=== PATIENT | female | born 1935 | race Caucasian/White ===

== ENCOUNTER 2018-04-27 14:26 | Emergency (ER) | payer MEDICARE, BC ==
[2018-04-27 16:46] LABS: ANION GAP 24.1
[2018-04-27] MEDS ORDERED: Lactated Ringers 1,000 ML IV ONE (16:58)
[2018-04-27] MEDS ORDERED: HYDROmorphone 0.5 MG/0.5 ML Syringe IVPUSH ONE ×3 (16:58→20:41)
[2018-04-27] MEDS ORDERED: Ondansetron 4 MG/2 ML SDV IV ONE (16:58)
--- NOTE | 2018-04-27 16:59 | CR ---
Clinical history: 82-year-old female complaining of suprapubic pain. 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 Reactive sclerosis acetabulum both hips particularly on the right. Exuberant bony sclerosis pubic symphysis. No fracture. No sign of foreign body, abdominal soft tissue mass lesion, or mechanical bowel obstruction. No free intraperitoneal air. Lung bases are clear. CONCLUSION: Bony abnormalities (see above). Nonspecific plain film exam abdomen.
[2018-04-27 20:44] VITALS: BP 163/83
--- NOTE | 2018-04-27 20:47 | EDM.PDOC ---
ED HPI GENERAL MEDICAL PROBLEM - General Chief Complaint: Abdominal Pain Stated Complaint: PAIN, LOWER STOMACH Time Seen by Provider: 04/27/18 16:15 - History of Present Illness INITIAL COMMENTS - FREE TEXT/NARRATIVE: Patient presents to ER with complaint of 2 days of severe abdominal pain. She points to her lower belly to localize the pain. She has history of melanoma with mets. She states she has had a lot of bowel problems since starting her immunologic therapy a few months ago. Frequent issues with constipation. No fever or chills. She has been vomiting since yesterday afternoon, no oral intake since then. Bilateral Lower Abdominal Pain Score (Numeric/FACES): 10 - Related Data Allergies Allergy/AdvReac Type Severity Reaction Status Date / Time ibuprofen Allergy Unknown SWELLING Verified 09/24/16 12:29 OF LEGS/FEET Home Meds: Home Meds diphenhydrAMINE [Benadryl] 25 mg PO DAILY PRN 04/07/15 [History] Furosemide [Lasix] 40 mg PO DAILY 04/27/18 [History] Hydrocodone/Acetaminophen [Hydrocodon-Acetaminophen 5-325] 1 tab PO Q4H PRN 08/04 [History] Levothyroxine 25 mcg PO ACBREAKFAST 04/27/18 [History] Ondansetron HCl [Zofran] 4 mg PO Q8H PRN 04/27/18 [History] Potassium Chloride 20 meq PO DAILY 04/27/18 [History] Prochlorperazine [Compazine] 5 mg PO Q6H PRN 04/27/18 [History] Ramipril 5 mg PO DAILY 04/27/18 [History] atorvaSTATin [Lipitor] 10 mg PO BEDTIME 04/27/18 [History] fentaNYL [Duragesic] 25 mcg TD Q72H 04/27/18 [History] Past Medical History Other HEENT History: HX OF MELANOMA, OCULAR/RETINAL; WEARS CORRECTIVE LENSES Cardiovascular History: Reports: High Cholesterol Other Cardiovascular History: DYSLIPIDEMIA; DISCONTINUED TAKING ANTIHYPERTENSIVE MEDS, SELF CHECKS BP'S REGULARLY Other Gastrointestinal History: LIVER LESION Genitourinary History: Reports: Other (See Below) Other Genitourinary History: Pt states that she has some kidney failure at this time LINE CLOSER History: Reports: Endocrine/Metabolic History: Reports: Hypothyroidism Oncologic (Cancer) History: Reports: Breast, Colon, Liver Other Oncologic History: 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 , Melanoma spot on the liver - Infectious Disease History Infectious Disease History: Reports: Chicken Pox, Measles - Past Surgical History Other HEENT Surgeries/Procedures: EYE SURGERY TO REMOVE CANCER; ADENIODECTOMY; FULL SET OF DENTURES Other Oncologic Surgeries/Procedures: BILAT MASECTOMY WITH REMOVAL OF LYMPH NODES ON THE LEFT Social & Family History - Family History Family Medical History: Noncontributory Cardiac: Reports: [place] Respiratory: Reports: None GI: Reports: None : Reports: None OBGYN: Reports: None Musculoskeletal: Reports: Fibromyalgia Neurological: Reports: Migraines Psychiatric: Reports: None Endocrine/Metabolic: Reports: Diabetes, type II Hematologic: Reports: None Immunologic: Reports: None Dermatologic: Reports: Psoriasis Oncologic: Reports: Lymphoma - Tobacco Use Smoking Status *Q: Former Smoker Used Tobacco, but Quit: Yes Month/Year Tobacco Last Used: 04/2016 - Caffeine Use Caffeine Use: Reports: Coffee - Recreational Drug Use Recreational Drug Use: No ED ROS GENERAL - Review of Systems Review Of Systems: ROS reveals no pertinent complaints other than HPI. ED EXAM, GI/ABD - Physical Exam Exam: See Below Throat/Mouth: Normal Oropharynx Head: Atraumatic, Normocephalic Respiratory/Chest: Lungs Clear, Normal Breath Sounds Cardiovascular: Regular Rate, Rhythm GI/Abdominal Exam: Soft, Other (tender to palpation over suprapubic and RLQ) Extremities: Normal Range of Motion, Slow Capillary Refill Neurological: Alert, Oriented, CN II-XII Intact Skin Exam: Warm, Dry, Intact Course - Vital Signs Last Recorded V/S: Last Vital Signs Temp 37.1 C 04/27/18 14:45 Pulse 83 04/27/18 14:45 Resp 20 04/27/18 14:45 BP 139/53 L 04/27/18 14:45 Pulse Ox 98 04/27/18 14:45 - Orders/Labs/Meds Orders: Active Orders 24 hr Category Date Time Status URINALYSIS W/MICROSCOPIC [UA W/MICROSCOPIC] [URIN] Stat Lab 04/27/18 18:14 Ordered HYDROmorphone [Dilaudid] Med 04/27/18 20:41 Once 0.5 mg IVPUSH ONETIME ONE Medication Orders Hydromorphone HCl (Dilaudid) 0.5 mg IVPUSH ONETIME ONE Stop: 04/27/18 20:42 Labs: Laboratory Tests 04/27/18 04/27/18 04/27/18 Range/Units 16:15 16:15 16:15 WBC 12.5 H (5.0-10.0) 10^3/uL RBC 3.56 L (4.2-5.4) 10^6/uL Hgb 10.4 L (12.0-16.0) g/dL Hct 32.5 L (37.0-47.0) % MCV 91.3 (80-100) fL MCH 29.2 (27.0-34.0) pg MCHC 32.0 L (33.0-35.0) g/dL Plt Count 393 (150-450) 10^3/uL Neut % (Auto) 78.5 H (42.2-75.2) % Lymph % (Auto) 9.8 L (20.5-50.1) % [place] % (Auto) 10.9 H (2-8) % Eos % (Auto) 0.8 L (1.0-3.0) % Baso % (Auto) 0.0 (0.0-1.0) % Sodium 132 L (135-145) mmol/L Potassium 5.1 H (3.6-5.0) mmol/L Chloride 99 L (101-111) mmol/L Carbon Dioxide 14.0 L D (21.0-31.0) mmol/L Anion Gap 24.1 BUN 27 H (7-18) mg/dL Creatinine 1.5 H (0.6-1.3) mg/dL Est Cr Clr Drug Dosing 22.87 mL/min Estimated GFR (MDRD) 33 BUN/Creatinine Ratio 18.00 Glucose 89 (74-105) mg/dL Lactic Acid 1.2 (0.5-2.2) mmol/L Calcium 9.4 (8.4-10.2) mg/dl Total Bilirubin 0.8 (0.2-1.0) mg/dL AST 48 H (10-42) IU/L ALT 14 (10-60) IU/L Alkaline Phosphatase 213 H (42-121) IU/L Total Protein 7.8 (6.7-8.2) g/dl Albumin 3.3 (3.2-5.5) g/dl Globulin 4.5 Albumin/Globulin Ratio 0.73 Urine Color (YELLOW) Urine Appearance (CLEAR) Urine pH (5.0-9.0) Ur Specific [place] (1.005-1.030) Urine Protein (NEGATIVE) Urine Glucose (UA) (NEGATIVE) Urine Ketones (NEGATIVE) Urine Occult Blood (NEGATIVE) Urine Nitrite (NEGATIVE) Urine Bilirubin (NEGATIVE) Urine Urobilinogen (0.2-1.0) mg/dL Ur Leukocyte Esterase (NEGATIVE) Urine RBC /HPF Urine WBC (0-5/HPF) /HPF Ur Epithelial Cells /HPF Urine Bacteria (0-FEW/HPF) /HPF Hyaline Casts /LPF 04/27/18 Range/Units 18:14 WBC (5.0-10.0) 10^3/uL RBC (4.2-5.4) 10^6/uL Hgb (12.0-16.0) g/dL Hct (37.0-47.0) % MCV (80-100) fL MCH (27.0-34.0) pg MCHC (33.0-35.0) g/dL Plt Count (150-450) 10^3/uL Neut % (Auto) (42.2-75.2) % Lymph % (Auto) (20.5-50.1) % [place] % (Auto) (2-8) % Eos % (Auto) (1.0-3.0) % Baso % (Auto) (0.0-1.0) % Sodium (135-145) mmol/L Potassium (3.6-5.0) mmol/L Chloride (101-111) mmol/L Carbon Dioxide (21.0-31.0) mmol/L Anion Gap BUN (7-18) mg/dL Creatinine (0.6-1.3) mg/dL Est Cr Clr Drug Dosing mL/min Estimated GFR (MDRD) BUN/Creatinine Ratio Glucose (74-105) mg/dL Lactic Acid (0.5-2.2) mmol/L Calcium (8.4-10.2) mg/dl Total Bilirubin (0.2-1.0) mg/dL AST (10-42) IU/L ALT (10-60) IU/L Alkaline Phosphatase (42-121) IU/L Total Protein (6.7-8.2) g/dl Albumin (3.2-5.5) g/dl Globulin Albumin/Globulin Ratio Urine Color Yellow (YELLOW) Urine Appearance Slightly cloudy (CLEAR) Urine pH 5.0 (5.0-9.0) Ur Specific [place] 1.015 (1.005-1.030) Urine Protein Trace H (NEGATIVE) Urine Glucose (UA) Negative (NEGATIVE) Urine Ketones 80 H (NEGATIVE) Urine Occult Blood Negative (NEGATIVE) Urine Nitrite Negative (NEGATIVE) Urine Bilirubin Small H (NEGATIVE) Urine Urobilinogen 0.2 (0.2-1.0) mg/dL Ur Leukocyte Esterase Negative (NEGATIVE) Urine RBC 0-5 /HPF Urine WBC 0-5 (0-5/HPF) /HPF Ur Epithelial Cells Few /HPF Urine Bacteria Moderate H (0-FEW/HPF) /HPF Hyaline Casts Moderate H /LPF Meds: Medications Generic Name Dose Route Start Last Admin Trade Name Baironq PRN Reason Stop Dose Admin Hydromorphone HCl 0.5 mg 04/27/18 20:41 Dilaudid IVPUSH 04/27/18 20:42 ONETIME ONE Discontinued Medications Generic Name Dose Route Start Last Admin Trade Name Baironq PRN Reason Stop Dose Admin Hydromorphone HCl 0.5 mg 04/27/18 16:58 04/27/18 17:10 Dilaudid IVPUSH 04/27/18 16:59 0.5 mg ONETIME ONE Administration Hydromorphone HCl 1 mg 04/27/18 17:58 04/27/18 18:05 Dilaudid IVPUSH 04/27/18 17:59 1 mg ONETIME ONE Administration Lactated Ringer's 1,000 mls @ 999 mls/hr 04/27/18 16:58 04/27/18 17:08 Ringers, Lactated IV 04/27/18 17:58 999 mls/hr .BOLUS ONE Administration Ondansetron HCl 4 mg 04/27/18 16:58 04/27/18 17:09 Zofran IV 04/27/18 16:59 4 mg ONETIME ONE Administration - Re-Assessments/Exams Free Text/Narrative Re-Assessment/Exam: Ivonne was given 2mg of hydromorphone over the past 2 hours with very little relief of her pain. Has attempted intake of sips of water and ice chips with immediate vomiting. 04/27/18 20:43 Departure - Departure Time of Disposition: 20:44 Disposition: DC/Tfer to Acute Hospital 02 Clinical Impression: Dehydration Abdominal pain Qualifiers: Abdominal location: right lower quadrant Qualified Code(s): R10.31 - Right lower quadrant pain - Discharge Information *PRESCRIPTION DRUG MONITORING PROGRAM REVIEWED*: Not Applicable *COPY OF PRESCRIPTION DRUG MONITORING REPORT IN PATIENT AKI: Not Applicable Forms: ED Department Discharge - Problem List & Annotations (1) Abdominal pain SNOMED Code(s): 49996957 Code(s): R10.9 - UNSPECIFIED ABDOMINAL PAIN Status: Acute Annotation/ Comment:: History of metastatic cancer with severe abdominal problems due to immunologic therapy Qualifiers: Abdominal location: right lower quadrant (2) Dehydration SNOMED Code(s): 01063007 Code(s): E86.0 - DEHYDRATION Status: Acute - Problem List Review Problem List Initiated/Reviewed/Updated: Yes - My Orders Last 24 Hours: My Active Orders 04/27/18 20:41 HYDROmorphone [Dilaudid] 0.5 mg IVPUSH ONETIME ONE - Assessment/Plan Last 24 Hours: My Active Orders 04/27/18 20:41 HYDROmorphone [Dilaudid] 0.5 mg IVPUSH ONETIME ONE
== END 2018-04-27 21:08 ==
LOC: DL.ED 14:26
DX: R10.31 Right lower quadrant pain (principal); E86.0 Dehydration; Z88.8 Allergy status to other drugs, medicaments and biological substances; Z87.891 Personal history of nicotine dependence
CPT/HCPCS: 36415; 74019; 80053; 81001; 83605; 85025; 96361; 96374; 96375; 96376; 99285; J1170; J2405; J7120

== ENCOUNTER 2018-06-17 10:46 | Emergency (ER) | payer MEDICARE, BC ==
[2018-06-17] MEDS ORDERED: Sodium Chloride 0.9% 10 ML Syringe FLUSH PRN (10:49)
[2018-06-17 10:58] VITALS: BP 121/60
--- NOTE | 2018-06-17 11:10 | EDM.PDOC ---
ED HPI GENERAL MEDICAL PROBLEM - General Chief Complaint: General Stated Complaint: FROM CLINIC Time Seen by Provider: 06/17/18 11:00 Source of Information: Reports: Patient, Family (Daughter), RN, RN Notes Reviewed History Limitations: Reports: No Limitations - History of Present Illness INITIAL COMMENTS - FREE TEXT/NARRATIVE: Pt sent from [facility] by Cynthia PATEL with report that pt presented to clinic with a fever of 102.8F with chills. Pt states she developed fever and chills about 2 days ago. She c/o constant generalized itching with a dry rash and red peeling skin. She has been itching for about 3 weeks, but has just became red a few days ago. She also c/o new onset lower extremity edema. She reports a chronic but painful sacral ulcer, and a mild dry cough. Denies sputum production, N/V, congestion, sore throat, acute abdominal pain, diarrhea, or any urinary symptoms. No known sick contacts. 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 She has been on Mekinist for 2 months. She is followed by Dr. Aj at [facility]. Duration: Constant Location: Reports: Generalized Severity: Severe Improves with: Reports: None Worsens with: Reports: None Context: Denies: Sick Contact Associated Symptoms: Reports: No Other Symptoms - Related Data Allergies Allergy/AdvReac Type Severity Reaction Status Date / Time ibuprofen Allergy Unknown SWELLING Verified 06/17/18 10:53 OF LEGS/FEET Home Meds: Home Meds diphenhydrAMINE [Benadryl] 25 mg PO DAILY PRN 04/07/15 [History] Furosemide [Lasix] 40 mg PO DAILY 04/27/18 [History] Ondansetron HCl [Zofran] 8 mg PO Q8H PRN 04/27/18 [History] Potassium Chloride 20 meq PO DAILY 04/27/18 [History] Prochlorperazine [Compazine] 5 mg PO Q6H PRN 04/27/18 [History] Ramipril 5 mg PO DAILY 04/27/18 [History] atorvaSTATin [Lipitor] 10 mg PO BEDTIME 04/27/18 [History] fentaNYL [Duragesic] 25 mcg TD Q72H 04/27/18 [History] Levothyroxine [Synthroid] 100 mcg PO DAILY 05/14/18 [History] Multivitamin [Multivitamins] 1 tab PO DAILY 05/14/18 [History] Sennosides/Docusate Sodium [Senna-Docusate Sodium] 2 tab PO BID 05/14/18 [ History] Trametinib Dimethyl Sulfoxide [Mekinist] 2 mg PO DAILY 05/14/18 [History] atorvaSTATin [Lipitor] 40 mg PO DAILY 05/14/18 [History] oxyCODONE 05/14/18 [History] Past Medical History Other HEENT History: HX OF MELANOMA, OCULAR/RETINAL; WEARS CORRECTIVE LENSES Cardiovascular History: Reports: High Cholesterol Other Cardiovascular History: DYSLIPIDEMIA; DISCONTINUED TAKING ANTIHYPERTENSIVE MEDS, SELF CHECKS BP'S REGULARLY Other Gastrointestinal History: LIVER LESION Genitourinary History: Reports: Other (See Below) Other Genitourinary History: Pt states that she has some kidney failure at this time [employer] History: Reports: Endocrine/Metabolic History: Reports: Hypothyroidism Oncologic (Cancer) History: Reports: Breast, Colon, Liver Other Oncologic History: 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 , Melanoma spot on the liver - Infectious Disease History Infectious Disease History: Reports: Chicken Pox, Measles - Past Surgical History Other HEENT Surgeries/Procedures: EYE SURGERY TO REMOVE CANCER; ADENIODECTOMY; FULL SET OF DENTURES Other Oncologic Surgeries/Procedures: BILAT MASECTOMY WITH REMOVAL OF LYMPH NODES ON THE LEFT Social & Family History - Family History Family Medical History: Noncontributory Cardiac: Reports: [place] Respiratory: Reports: None GI: Reports: None : Reports: None OBGYN: Reports: None Musculoskeletal: Reports: Fibromyalgia Neurological: Reports: Migraines Psychiatric: Reports: None Endocrine/Metabolic: Reports: Diabetes, type II Hematologic: Reports: None Immunologic: Reports: None Dermatologic: Reports: Psoriasis Oncologic: Reports: Lymphoma - Caffeine Use Caffeine Use: Reports: Coffee - Living Situation & Occupation Living situation: Reports: , Alone Occupation: Retired ED ROS GENERAL - Review of Systems Review Of Systems: ROS reveals no pertinent complaints other than HPI. ED EXAM, GENERAL - Physical Exam Exam: See Below Exam Limited By: No Limitations General Appearance: Alert, No Apparent Distress, Other (frail elderly appearing female) Eye Exam: Bilateral Eye: Normal Inspection Ears: Hearing Grossly Normal Nose: Normal Inspection, Normal Mucosa, No Blood Throat/Mouth: Normal Inspection, Normal Lips, Normal Oropharynx, Normal Voice, No Airway Compromise. No: Normal Teeth (dentures) Head: Atraumatic, Normocephalic Neck: Normal Inspection, Supple, Non-Tender, Full Range of Motion. No: Lymphadenopathy (L), Lymphadenopathy (R) Respiratory/Chest: No Respiratory Distress, No Accessory Muscle Use, Decreased Breath Sounds, Rales. No: Rhonchi, Wheezing Cardiovascular: Regular Rate, Rhythm GI/Abdominal: Normal Bowel Sounds, Soft, No Distention, Tender (mild generalized tenderness (chronic/stable per pt)). No: Guarding, Rigid, Rebound (Female) Exam: Deferred Rectal (Female) Exam: Deferred Back Exam: Normal Inspection. No: CVA Tenderness (L), CVA Tenderness (R) Extremities: Normal Range of Motion, Non-Tender, Pedal Edema (Mild B/L lower ext. edema to lower legs) Neurological: Alert, Oriented, CN II-XII Intact, Normal Cognition, No Motor/ Sensory Deficits Psychiatric: Normal Affect, Normal Mood Skin Exam: Warm, Dry (very dry, cracked), Decubitus (coccyx/sacrum, chronic), Increased Warmth, Rash (dry erythematous generalized rash, pruritic) Course - Vital Signs Last Recorded V/S: Last Vital Signs Temp 36.8 C 06/17/18 10:57 Pulse 91 06/17/18 10:57 Resp 16 06/17/18 10:57 BP 121/60 06/17/18 10:57 Pulse Ox 92 L 06/17/18 10:57 - Orders/Labs/Meds Orders: Active Orders 24 hr Category Date Time Status EKG 12 Lead [EKG Documentation Completion] [RC] URGENT Care 06/17/18 11:02 Active Peripheral IV Care [RC] . DIRECTED Care 06/17/18 10:57 Active CULTURE BLOOD [BC] Stat Lab 06/17/18 11:13 Received CULTURE BLOOD [BC] Stat Lab 06/17/18 11:16 Received CULTURE STREP A CONFIRMATION [] Stat Lab 06/17/18 11:50 Results STREP SCRN A RAPID W CULT CONF [] Stat Lab 06/17/18 11:50 Results UA W/MICROSCOPIC [URIN] Stat Lab 06/17/18 10:50 Ordered Levofloxacin/Dextrose 5%-Water [Levaquin in D5W 500 MG/ Med 06/17/18 12:38 Ordered 100 ML] 500 mg Premix Bag 1 bag IV ONETIME Sodium Chloride 0.9% @ 150 MLS/HR (1000ml) Med 06/17/18 12:45 Ordered Sodium Chloride 0.9% [Normal Saline] 1,000 ml IV ASDIRECTED Sodium Chloride 0.9% [Saline Flush] Med 06/17/18 10:49 Active 10 ml FLUSH ASDIRECTED PRN Blood Culture x2 Reflex Set [OM.PC] Stat Oth 06/17/18 10:50 Ordered Peripheral IV Insertion Adult [OM.PC] Stat Oth 06/17/18 10:50 Ordered Medication Orders Levofloxacin/Dextrose 500 mg/ (Premix) 100 mls @ 100 mls/hr IV ONETIME ONE Stop: 06/17/18 13:37 Sodium Chloride (Normal Saline) 1,000 mls @ 150 mls/hr IV ASDIRECTED MAGDALENA Sodium Chloride (Saline Flush) 10 ml FLUSH ASDIRECTED PRN PRN Reason: Keep Vein Open Last Admin: 06/17/18 11:39 Dose: 10 ml Labs: Laboratory Tests 06/17/18 06/17/18 06/17/18 Range/Units 11:13 11:13 11:13 WBC 11.2 H (5.0-10.0) 10^3/uL RBC 3.28 L (4.2-5.4) 10^6/uL Hgb 9.9 L (12.0-16.0) g/dL Hct 31.0 L (37.0-47.0) % MCV 94.5 D (80-100) fL MCH 30.2 (27.0-34.0) pg MCHC 31.9 L (33.0-35.0) g/dL Plt Count 213 D (150-450) 10^3/uL Neut % (Auto) 43.4 (42.2-75.2) % Lymph % (Auto) 9.7 L (20.5-50.1) % [place] % (Auto) 9.4 H (2-8) % Eos % (Auto) 37.3 H (1.0-3.0) % Baso % (Auto) 0.2 (0.0-1.0) % Add Manual Diff Yes Neutrophils % (Manual) 45 (42-75) % Band Neutrophils % 1 % Lymphocytes % (Manual) 9 L (20-50) % Monocytes % (Manual) 7 (2-8) % Eosinophils % (Manual) 38 H (1-3) % Sodium 133 L (135-145) mmol/L Potassium 4.2 (3.6-5.0) mmol/L Chloride 97 L (101-111) mmol/L Carbon Dioxide 26.0 D (21.0-31.0) mmol/L Anion Gap 14.2 BUN 19 H (7-18) mg/dL Creatinine 0.9 (0.6-1.3) mg/dL Est Cr Clr Drug Dosing 38.12 mL/min Estimated GFR (MDRD) 60 BUN/Creatinine Ratio 21.11 Glucose 127 H (74-105) mg/dL Lactic Acid 3.0 H (0.5-2.2) mmol/L Calcium 7.5 L D (8.4-10.2) mg/dl Total Bilirubin 0.5 (0.2-1.0) mg/dL AST 44 H (10-42) IU/L ALT 17 (10-60) IU/L Alkaline Phosphatase 121 (42-121) IU/L B-Natriuretic Peptide (0-100) pg/ml Total Protein 4.7 L (6.7-8.2) g/dl Albumin 2.3 L (3.2-5.5) g/dl Globulin 2.4 Albumin/Globulin Ratio 0.96 Amylase 77 (28-100) U/L Lipase 18 L (22-51) U/L 06/17/ Range/Units 11:13 WBC (5.0-10.0) 10^3/uL RBC (4.2-5.4) 10^6/uL Hgb (12.0-16.0) g/dL Hct (37.0-47.0) % MCV (80-100) fL MCH (27.0-34.0) pg MCHC (33.0-35.0) g/dL Plt Count (150-450) 10^3/uL Neut % (Auto) (42.2-75.2) % Lymph % (Auto) (20.5-50.1) % [place] % (Auto) (2-8) % Eos % (Auto) (1.0-3.0) % Baso % (Auto) (0.0-1.0) % Add Manual Diff Neutrophils % (Manual) (42-75) % Band Neutrophils % % Lymphocytes % (Manual) (20-50) % Monocytes % (Manual) (2-8) % Eosinophils % (Manual) (1-3) % Sodium (135-145) mmol/L Potassium (3.6-5.0) mmol/L Chloride (101-111) mmol/L Carbon Dioxide (21.0-31.0) mmol/L Anion Gap BUN (7-18) mg/dL Creatinine (0.6-1.3) mg/dL Est Cr Clr Drug Dosing mL/min Estimated GFR (MDRD) BUN/Creatinine Ratio Glucose (74-105) mg/dL Lactic Acid (0.5-2.2) mmol/L Calcium (8.4-10.2) mg/dl Total Bilirubin (0.2-1.0) mg/dL AST (10-42) IU/L ALT (10-60) IU/L Alkaline Phosphatase (42-121) IU/L B-Natriuretic Peptide 21 (0-100) pg/ml Total Protein (6.7-8.2) g/dl Albumin (3.2-5.5) g/dl Globulin Albumin/Globulin Ratio Amylase (28-100) U/L Lipase (22-51) U/L Blood cultures x2: Pending Rapid Strep: negative Influenza A/B: negative Meds: Medications Generic Name Dose Route Start Last Admin Trade Name Freq PRN Reason Stop Dose Admin Levofloxacin/Dextrose 500 mg/ 100 mls @ 100 mls/hr 06/17/18 12:38 Premix IV 06/17/18 13:37 ONETIME ONE Sodium Chloride 1,000 mls @ 150 mls/hr 06/17/18 12:45 Normal Saline IV ASDIRECTED MAGDALENA Sodium Chloride 10 ml 06/17/18 10:49 06/17/18 11:39 Saline Flush FLUSH 10 ml ASDIRECTED PRN Administration Keep Vein Open - Radiology Interpretation Free Text/Narrative:: CXR: no acute process per Rad. report. Departure - Departure Time of Disposition: 12:39 Disposition: DC/Tfer to [facility] 02 Condition: Serious Clinical Impression: SIRS without acute organ dysfunction due to infectious process, History of known metastasis to liver, History of melanoma - Discharge Information *PRESCRIPTION DRUG MONITORING PROGRAM REVIEWED*: Not Applicable *COPY OF PRESCRIPTION DRUG MONITORING REPORT IN PATIENT AKI: Not Applicable Forms: ED Department Discharge, Interfacility Transfer EMTALA - My Orders Last 24 Hours: My Active Orders 06/17/18 10:49 Sodium Chloride 0.9% [Saline Flush] 10 ml FLUSH ASDIRECTED PRN 06/17/18 10:50 UA W/MICROSCOPIC [URIN] Stat Blood Culture x2 Reflex Set [OM.PC] Stat Peripheral IV Insertion Adult [OM.PC] Stat 06/17/18 10:57 Peripheral IV Care [RC] . DIRECTED 06/17/18 11:02 EKG 12 Lead [EKG Documentation Completion] [RC] URGENT 06/17/18 11:13 CULTURE BLOOD [BC] Stat 06/17/18 11:16 CULTURE BLOOD [BC] Stat 06/17/18 11:50 CULTURE STREP A CONFIRMATION [RM] Stat STREP SCRN A RAPID W CULT CONF [] Stat 06/17/18 12:38 Levofloxacin/Dextrose 5%-Water [Levaquin in D5W 500 MG/100 ML] 500 mg Premix Bag 1 bag IV ONETIME 06/17/18 12:45 Sodium Chloride 0.9% @ 150 MLS/HR (1000ml) Sodium Chloride 0.9% [Normal Saline] 1,000 ml IV ASDIRECTED - Assessment/Plan Last 24 Hours: My Active Orders 06/17/18 10:49 Sodium Chloride 0.9% [Saline Flush] 10 ml FLUSH ASDIRECTED PRN 06/17/18 10:50 UA W/MICROSCOPIC [URIN] Stat Blood Culture x2 Reflex Set [OM.PC] Stat Peripheral IV Insertion Adult [OM.PC] Stat 06/17/18 10:57 Peripheral IV Care [RC] . DIRECTED 06/17/18 11:02 EKG 12 Lead [EKG Documentation Completion] [RC] URGENT 06/17/18 11:13 CULTURE BLOOD [BC] Stat 06/17/18 11:16 CULTURE BLOOD [BC] Stat 06/17/18 11:50 CULTURE STREP A CONFIRMATION [RM] Stat STREP SCRN A RAPID W CULT CONF [RM] Stat 06/17/18 12:38 Levofloxacin/Dextrose 5%-Water [Levaquin in D5W 500 MG/100 ML] 500 mg Premix Bag 1 bag IV ONETIME 06/17/18 12:45 Sodium Chloride 0.9% @ 150 MLS/HR (1000ml) Sodium Chloride 0.9% [Normal Saline] 1,000 ml IV ASDIRECTED
[2018-06-17 11:44] LABS: ANION GAP 14.2
--- NOTE | 2018-06-17 12:15 | CR ---
CLINICAL HISTORY: 82-year-old female with history of malignant melanoma metastatic to the liver who p resents now with fever/edema. INTERPRETATION: Upright AP portable chest reveals surgical clips both axilla and chronic hypertrophic arthritic changes of the spine. Normal cardiac silhouette without cephalization of vascular flow, signs of alveolar edema or dependen t pleural effusion. Mild peribronchial "cuffing". No focal lobar pneumonia. No sign of metastatic lung disease. No atelectasis/collapse. No pneumothorax or free subdiaphragmatic air.
[2018-06-17] MEDS ORDERED: Levofloxacin/Dextrose 5%-Water 500 MG in Premix Bag 1 BAG IV ONE (12:38)
[2018-06-17] MEDS ORDERED: Sodium Chloride 0.9% 1,000 ML IV SCH (12:45)
== END 2018-06-17 15:15 ==
LOC: DL.ED 10:46
DX: L89.159 Pressure ulcer of sacral region, unspecified stage (principal); R65.10 Systemic inflammatory response syndrome (SIRS) of non-infectious origin without acute organ dysfunction; C78.7 Secondary malignant neoplasm of liver and intrahepatic bile duct; Z79.899 Other long term (current) drug therapy; Z88.6 Allergy status to analgesic agent
CPT/HCPCS: 36415; 71045; 80053; 82150; 83605; 83690; 83880; 85025; 87040; 87081; 87430; 87804; 93005; 96361; 96365; 99285; J1956; J7030; J7050; 99284